=== PATIENT | male | born 1980 | race Caucasian/White ===

== ENCOUNTER 2023-01-19 15:49 | Emergency (ER) | payer BC, SELFPAY ==
--- NOTE | ~2023-01-19 | CT_ITS ---
EXAMINATION: CT brain wo con DATE: 01/19/2023 16:30 INDICATION: Dizziness. Off balance. Nausea and vomiting. TECHNIQUE: Computed tomography (CT) of the head was performed without intravenous contrast. The mA wa s adjusted according to patient size. Iterative reconstruction technique was employed. Exam dose: 60 5.33 mGy-cm total exam DLP. COMPARISON: None FINDINGS: No intracranial mass lesion or hemorrhage or cerebrovascular accident. No midline shift or mass effect. Normal ventricular size. Normal dominguez-white matter differentiation. No subdural or epidural hematoma. The orbital contents are unremarkable. The mastoid air cells and included paranasal sinuses are normally aerated. Middle and inner ear appar atus appear normal bilaterally. No fracture or bone destruction of the cranial vault. IMPRESSION: Normal examination Reviewed, dictated and finalized at [facility]. Reviewed, dictated and finalized at [facility]. IMPRESSION: Normal examination
[2023-01-19 16:09] VITALS: BP 135/85; PULSE 64; RESP 14; TEMP 36.2; O2SAT 99
--- NOTE | 2023-01-19 16:29 | ED.GENADULT ---
HPI - General Adult General Chief complaint: Dizziness <Hafsa Soriano August, COUNTER ROLLER - Last Filed: 01/19/23 16:32> Stated complaint: vertigo with vomiting <Hafsa Soriano August, COUNTER ROLLER - Last Filed: 01/19/23 16:32> Time Seen by Provider: 01/19/23 17:06 <Hafsa Soriano August, COUNTER ROLLER - Last Filed: 01/19/23 16:32> History of Present Illness HPI narrative: Alex Serrato is a 42 y/o male who was sent here from the . He states that when he got up this morning he felt dizzy/ room spinning and then fell trying to get out of bed, he went to the today and was given Meclizine and Zofran, symptoms have improved slightly but still having dizziness. Denies nausea /vomiting/ denies headache/ vision changes/ numbness/tingling <Hafsa Soriano August, COUNTER ROLLER - Last Filed: 01/19/23 16:32> Related Data Allergies/adverse reactions: Allergies Allergy/AdvReac Type Severity Reaction Status Date / Time No Known Allergies Allergy Verified 01/19/23 15:50 <Hafsa Soriano August,N - Last Filed: 01/19/23 16:32> Review of Systems Review of Systems: All systems as dictated in HPI <Kenny Perales PA-C - Last Filed: 01/20/23 01:28> Exam Narrative: GENERAL: Well-appearing, well-nourished, and in no acute distress. HEAD: Normocephalic, atraumatic. EYES: PERRLA and EOMI. ENT: Nares clear, no rhinorrhea or epistaxis. Mucous membranes moist. Oropharynx without tonsillar hypertrophy exudate or other lesions. NECK: Supple. No adenopathy or masses. CHEST: No respiratory distress. Clear to auscultation. No wheezes rales or rhonchi HEART: Regular rate and rhythm. No murmur heard. Normal peripheral pulses. ABDOMEN: Soft, nontender, nondistended, normal active bowel sounds. MSK: Normal range of motion. No edema. SKIN: Warm, dry, no rash. NEURO: Alert and oriented x4. No focal deficits. Cranial nerves II-XII intact. No nystagmus. Corrective saccade when turning to the left. No skew deviation. PSYCH: Normal mood and affect. <Kenny Perales PA-C - Last Filed: 01/20/23 01:28> Course Course Emergency Course: Additional history gathered, denies syncope or head injury. Denies any cardiac history, chest pain, shortness of breath. States he has had vertigo in the past but has not gone away on its own. Reevaluation 1915: Patient is still having vertigo symptoms. They are still worse whenever he looks upward. Reevaluation 2001: Patient feeling much improved after Valium. He feels ready to go home. He was able to ambulate in the department without difficulty. <Kenny Perales PA-C - Last Filed: 01/20/23 01:28> Vital Signs Vital signs: Vital Signs Temperature 97.2 F L 01/19/23 16:09 Pulse Rate 64 01/19/23 16:09 Respiratory Rate 14 01/19/23 16:09 Blood Pressure 135/85 01/19/23 16:09 Pulse Oximetry 99 01/19/23 16:09 Oxygen Delivery Room Air 01/19/23 16:09 Temperature 97.2 F L 01/19/23 16:09 Pulse Rate 64 01/19/23 16:09 Respiratory Rate 14 01/19/23 16:09 Blood Pressure 135/85 01/19/23 16:09 Pulse Oximetry 99 01/19/23 16:09 Oxygen Delivery Room Air 01/19/23 16:09 <Hafsa Lang, COUNTER ROLLER - Last Filed: 01/19/23 16:32> Vital Signs Temperature 97.2 F L 01/19/23 16:09 Pulse Rate 64 01/19/23 16:09 Respiratory Rate 14 01/19/23 16:09 Blood Pressure 135/85 01/19/23 16:09 Pulse Oximetry 99 01/19/23 16:09 Oxygen Delivery Room Air 01/19/23 16:09 Temperature 97.2 F L 01/19/23 16:09 Pulse Rate 64 01/19/23 16:09 Respiratory Rate 14 01/19/23 16:09 Blood Pressure 135/85 01/19/23 16:09 Pulse Oximetry 99 01/19/23 16:09 Oxygen Delivery Room Air 01/19/23 16:09 <Kenny Perales PA-C - Last Filed: 01/20/23 01:28> Medical Decision Making MDM Narrative Medical decision making narrative: This is a 42-year-old male who presents to the ED with chief complaint of vertigo symptoms beginning earlier this morning. Vitals are normal. Exam shows a normal neurologic exam. Jarad gruber
[2023-01-19 17:12] LABS: Basophils Percent Auto 0.3 % (0.2-1.2); Eosinophils Percent Auto 0.3 % (0-4.4); Hematocrit 42.4 % (42.0-52.0); Immature Granulocyte Absolute 0.02 K/mm3 (0.00-0.031); Immature Granulocyte Percent A 0.3 % (0-0.5); Lymphocytes Absolute Auto 1.42 K/mm3 (0.9-3.2); Lymphocytes Percent Auto 24.1 % (18.3-44.2); Mean Corpuscular Hemoglobin 30.2 pg (26-34); Mean Corpuscular Volume 91.6 fl (80-100); Mean Platelet Volume 10.7 fl (7.4-10.4); Monocytes Absolute Auto 0.4 K/mm3 (0.1-0.6); Monocytes Percent Auto 7.3 % (2.6-8.5); Neutrophils Percent Auto 67.7 % (45.5-73.1); Platelet Count Result 168 k/mm3 (150-375); Red Blood Count 4.63 M/mm3 (4.6-6.20); Red Cell Distribution Width 13.8 % (11.5-14.5); White Blood Count 5.9 K/mm3 (4.5-10.0)
[2023-01-19 17:21] LABS: Alanine Aminotransferase 79 U/L (6-50); Albumin Level 4.8 g/dL (3.5-5.1); Alkaline Phosphatase 127 U/L (38-126); Anion Gap 6 mmol/L (8-16); Aspartate Amino Transferase 52 U/L (17-59); Bilirubin,Total 1.3 mg/dL (0.2-1.3); Blood Urea Nitrogen 16 mg/dL (9-20); Calcium 9.2 mg/dL (8.4-10.2); Carbon Dioxide 30 mmol/L (22-30); Chloride 101 mmol/L (98-107); Estimated CRCL calculation 84 ml/min; Estimated Glomerular Filt Rate > 60; Glucose 100 mg/dL (65-110); Potassium 4.3 mmol/L (3.4-5.0); Sodium 137 mmol/L (137-145)
[2023-01-19] MEDS: diphenhydrAMINE HCl INJ 50 MG/ML VIAL 25 MG IV PUSH (17:53)
[2023-01-19] MEDS: METOCLOPRAMIDE HCL INJ 10 MG/2 ML VIAL IV PUSH (17:54)
[2023-01-19] MEDS: diazePAM INJ (*CRX) 10 MG/2 ML SYRINGE 5 MG IV PUSH (19:39)
== END 2023-01-19 20:19 | disposition home or self-care (01) ==
PROVIDERS: Nurse Practitioner Family; Emergency Provider Physician Assistant; PCP Nurse Practitioner
DX: H81.10 Benign paroxysmal vertigo, unspecified ear (principal)
CPT/HCPCS: 36415; 70450; 80053; 85025; 96374; 96375; 99284; J1200; J2765; J3360